=== PATIENT | female | born 1980 | race African-American/Black ===

== ENCOUNTER → 2023-12-21 | Emergency (ER) | payer OTHER ==
[~2023-12-21] MED LIST: CYCLOBENZAPRINE 10 MG TAB ONE; GABAPENTIN 300 MG CAP ONE; KETOROLAC 30 MG/ML INJ ONE; LIDOCAINE 4% PATCH ONE; POTASSIUM 25 MEQ EFFERV TAB ONE
[2023-12-21 16:19] LABS: Absolute Lymphocytes (CBC) 1.9 K/uL (0.7-4.9); Hematocrit 33.8 % (36.0-45.0); Lymphocytes % 30.1 % (15.3-44.8); MCV 69.9 fL (80-100); Platelets 275 thou/uL (152-406); RBC Red Blood Cell Count 4.84 M/uL (3.86-4.86)
[2023-12-21 16:44] LABS: Albumin 3.4 g/dL (3.4-5.0); Bilirubin Total 0.4 mg/dL (0.2-1.0); Potassium 3.2 mEq/L (3.5-5.1); Protein, Total 8.6 g/dL (6.4-8.2)
[2023-12-21 16:56] LABS: Specific Gravity 1.012 (1.005-1.030)
[2023-12-21 17:07] LABS: Specific Gravity 1.012 (1.005-1.030); Urine Bacteria None Seen /HPF (<20); Urine Bilirubin NEGATIVE (Negative); Urine Blood 3+ (OVER) (Negative); Urine Clarity Turbid (Clear); Urine Color Light-Yellow (Yellow); Urine Glucose NEGATIVE (Negative); Urine Mucus Slight /HPF (None Seen); Urine Protein NEGATIVE (Negative); Urine RBC >50 /HPF (None Seen); Urine Urobilinogen Normal (Normal); Urine pH 5.5 (5.0-7.0)
--- NOTE | 2023-12-21 17:42 | RAD REPORT ---
EXAM DESCRIPTION: CT - Abdomen Pelvis Wo Contrast - 12/21/2023 5:30 pm CLINICAL HISTORY: Abdominal pain. flank/mid back pain COMPARISON: No comparisons TECHNIQUE: CT imaging of the abdomen and pelvis was performed without contrast. Solid organ, bowel a nd vascular assessment is limited due to lack of IV and oral contrast. All CT scans are performed using dose optimization technique as appropriate and may include automated exposure control or mA/KV adjustment according to patient size. FINDINGS: Small benign calcified granulomata are seen both lung bases. The liver, spleen, pancreas, adrenal glands and kidneys are within normal limits for a limited non-co ntrast examination. No bowel obstruction, free air, free fluid or abscess. Moderate stool is present throughout the colon . The appendix is not identified as a discrete structure, however, no secondary findings of appendici tis are identified. Large lobulated pelvic mass is presumably a leiomyomatous uterus. The osseous structures are within normal limits. IMPRESSION: Very large leiomyomatous uterus suspected measuring 17 cm in transverse dimension. Moderate stool retained throughout the colon. A limited non-contrast examination was performed as detailed.
--- NOTE | 2023-12-21 18:16 | EDPHYS ---
Physician Documentation [facility] Name: Nilay Pepe Age: 43 yrs Sex: Female : 1980 Arrival Date: 12/21/2023 Time: 14:50 Bed 20 Private MD: ED Physician Anibal Robert HPI: 12/21 15:21 This 43 yrs old Black Female presents to ER via Ambulatory with complaints of Back Pain.sb4 15:21 The patient presents with pain that is acute, with no known mechanism of injury, and sb4 spasm, and tenderness. The symptoms are located in the lumbar area. Onset: The symptoms/episode began/occurred 7 day(s) ago. The pain does not radiate. Associated signs and symptoms: The patient has no apparent associated signs or symptoms. Modifying factors: The patient symptoms are alleviated by nothing, the patient symptoms are aggravated by movement. The patient has experienced a previous episode. 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 - Social history:: Smoking status: Patient denies any tobacco usage or history of. ROS: 15:21 Constitutional: Negative for fever, chills, and weight loss, sb4 15:21 Back: Positive for pain at rest, pain with movement, of the lumbar area, 15:21 All other systems are negative, Exam: 15:21 Constitutional: This is a well developed, well nourished patient who is awake, alert, sb4 and in no acute distress. Head/Face: Normocephalic, atraumatic. Eyes: Extra-ocular motions intact. Periorbital areas with no swelling, redness, or edema. ENT: Mucous membranes moist. Cardiovascular: Regular rate and rhythm with a normal S1 and S2. Respiratory: Lungs have equal breath sounds bilaterally, clear to auscultation and percussion. No rales, rhonchi or wheezes noted. No increased work of breathing, no retractions or nasal flaring. Abdomen/GI: Soft, non-tender, no distension. Skin: Warm, dry with normal turgor. Normal color with no rashes, no lesions, and no evidence of cellulitis. MS/ Extremity: Pulses equal, no cyanosis. Neurovascular intact. Full, normal range of motion. Neuro: Awake and alert, GCS 15, oriented to person, place, time, and situation. Motor strength 5/5 in all extremities. Sensory grossly intact. 15:21 Back: pain, that is moderate, of the lumbar area, normal spinal alignment noted, CVA tenderness, is absent, muscle spasm, is not present, 15:21 Neuro: Exam negative for acute changes, focal neuro deficits, motor deficits, sensory deficits, cerebellar deficits, weakness, Vital Signs: 15:15 BP 179 / 103; Pulse 81; Resp 17; Temp 98; Pulse Ox 97% on R/A; Weight 62.6 kg; Height 4 ll1 ft. 6 in. ; Pain 0/10; 16:30 BP 179 / 101; Pulse 73; Resp 16; Pulse Ox 100% on R/A; me1 17:00 BP 157 / 87; Pulse 71; Resp 16; Pulse Ox 100% on R/A; me1 18:33 BP 173 / 104; Pulse 83; Resp 18; Pulse Ox 100% on R/A; me1 15:15 Body Mass Index 32.07 (62.60 kg, 139.7 cm) ll1 15:15 Pain Scale: Adult ll1 MDM: 15:08 Patient medically screened. sb4 15:21 Differential diagnosis: Pyelonephritis Ureterolithiasis. sb4 18:08 Data reviewed: vital signs, nurses notes, lab test result(s), radiologic studies, and sb4 as a result, I will discharge patient. Counseling: I had a detailed discussion with the patient and/or guardian regarding the historical points, exam findings, and any diagnostic results supporting the discharge/admit diagnosis, the presence of at least one elevated blood pressure reading (>120/80) during this emergency department visit, lab results, radiology results, to return to the emergency department if symptoms worsen or persist or if there are any questions or concerns that arise at home. ED course: aware of uterine mass, has hysterectomy scheduled. 12/21 15:19 Order name: CBC with Diff sb4 12/21 15:19 Order name: CMP; Complete Time: 16:46 sb4 12/21 15:19 Order name: Urinalysis w/ reflexes; Complete Time: 17:07 sb4 12/21 15:23 Order name: Test, Urine; Complete Time: 17:08 sb4 12/21 15:19 Order name: CT Abd/Pelvis - Without Contrast; Complete Time: 17:50 sb4 12/21 15:19 Order name: IV Saline Lock; Complete Time: 16:29 sb4 12/21 15:19 Order name: Labs collected and sent; Complete Time: 16:29 sb4 Administered Medications: 16:32 Drug: Ketorolac IVP 15 mg IVP once Route: IVP; Site: right antecubital; me1 16:37 Follow up: Response: No adverse reaction; Pain is decreased me1 16:32 Drug: Cyclobenzaprine PO 10 mg PO once Route: PO; me1 16:37 Follow up: Response: No adverse reaction; Pain is decreased me1 17:14 Drug: Potassium PO Effervescent Tablet 50 mEq PO once; dissolve in 4 ounces of water or me1 juice Route: PO; 17:17 Follow up: Response: No adverse reaction me1 18:32 Drug: Gabapentin PO 300 mg PO once Route: PO; me1 18:43 Follow up: Response: No adverse reaction me1 18:32 Drug: Lidoderm Topical Patch 5 % (700 mg/patch) 1 patches Topical once; leave on for 12 me1 hours; cover most painful area; may cut into smaller pieces {Note: TO LUMBAR SPINE.} Route: Topical; Site: affected area; Disposition Summary: 12/21/23 18:15 Discharge Ordered Notes: Location: Home sb4 Problem: new sb4 Symptoms: have improved sb4 Condition: Stable sb4 Diagnosis - Low back pain sb4 Followup: sb4 - With: Emergency Department - When: As needed - Reason: Trouble breathing, Worsening of condition Discharge Instructions: - Discharge Summary Sheet sb4 - Acute Back Pain, Adult sb4 Forms: - Medication Reconciliation Form sb4 - Thank You Letter sb4 - Antibiotic Education sb4 - Prescription Opioid Use sb4 - Patient Portal Instructions sb4 - Leadership Thank You Letter sb4 Prescriptions: - Diclofenac Sodium 75 mg Oral Tablet Sustained Release - take 1 tablet ORAL route 2 times per day; 30 tablet; Refills: 0, Product sb4 Selection Permitted - Cyclobenzaprine 5 mg Oral Tablet - take 1 tablet ORAL route 3 times per day As needed; 15 tablet; Refills: 0, sb4 Product Selection Permitted Addendum: 12/22/2023 23:26 I was immediately available for consultation during this patient's visit. I did not e c2 personally see the patient or discuss the patient with the LEON. . Signatures: Dispatcher [employer] Brooke Ewing RN RN ll1 Latesha Mercedes PA-C PANoris sb4 Danii Leos RN RN me1 Anibal Robert MD MD ec2
--- NOTE | 2023-12-21 18:16 | ER ---
Nurse's Notes [facility] Name: Nilay Pepe Age: 43 yrs Sex: Female : 1980 Arrival Date: 12/21/2023 Time: 14:50 Bed 20 Private MD: Diagnosis: Low back pain Presentation: 12/21 15:15 Chief complaint: Patient states: Muscle spasms, burning, tingling to back for 4-5 days. ll1 No trauma or falls. Coronavirus screen: Client denies travel out of the [place] in the last 14 days. At this time, the client does not indicate any symptoms associated with coronavirus-19. Ebola Screen: Patient denies travel to an Ebola-affected area in the 21 days before illness onset. Initial Sepsis Screen: Does the patient meet any 2 criteria? No. Patient's initial sepsis screen is negative. Does the patient have a suspected source of infection? No. Patient's initial sepsis screen is negative. Risk Assessment: Do you want to hurt yourself or someone else? Patient reports no desire to harm self or others. Onset of symptoms was December 17, 2023. 15:15 Method Of Arrival: Ambulatory ll1 15:15 Acuity: SHERRIE 4 ll1 16:12 Acuity: SHERRIE 3 iw Triage Assessment: 15:16 General: Appears uncomfortable, Behavior is calm, cooperative, appropriate for age. ll1 Pain: Complains of pain in mid back Quality of pain is described as aching, crampy, sharp, Pain began 4-5 days. Musculoskeletal: Circulation, motion, and sensation intact. Capillary refill < 3 seconds, Reports pain in mid back. 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 - Social history:: Smoking status: Patient denies any tobacco usage or history of. Screenin:37 [facility] ED Fall Risk Assessment (Adult) History of falling in the last 3 months, me1 including since admission No falls in past 3 months (0 pts) Confusion or Disorientation No (0 pts) Intoxicated or Sedated No (0 pts) Impaired Gait No (0 pts) Mobility Assist Device Used No (0 pt) Altered Elimination No (0 pt) Score/Fall Risk Level 0 - 2 = Low Risk Maintained a safe environment, Provided non-skid footwear, Hourly rounding (assess needs \T\ fall precautionary measures) done. Abuse screen: Denies threats or abuse. Nutritional screening: No deficits noted. Tuberculosis screening: No symptoms or risk factors identified. Assessment: 16:37 General: Appears uncomfortable, well groomed, well developed, well nourished, Behavior me1 is calm, cooperative, appropriate for age, Reports Muscle spasms, burning, tingling to back for 4-5 days. No trauma or falls. Pain: Complains of pain in lumbar area Pain does not radiate. Pain currently is 10 out of 10 on a pain scale. Quality of pain is described as burning, tingling, Pain began 4-5 days ago Is continuous. Neuro: Level of Consciousness is awake, alert, obeys commands, Oriented to person, place, time, situation, Appropriate for age. Cardiovascular: Capillary refill < 3 seconds Patient's skin is warm and dry. Respiratory: Airway is patent Trachea midline Respiratory effort is even, unlabored, Respiratory pattern is regular, symmetrical. Musculoskeletal: Reports pain in lumbar area. Vital Signs: 15:15 BP 179 / 103; Pulse 81; Resp 17; Temp 98; Pulse Ox 97% on R/A; Weight 62.6 kg; Height 4 ll1 ft. 6 in. ; Pain 0/10; 16:30 BP 179 / 101; Pulse 73; Resp 16; Pulse Ox 100% on R/A; me1 17:00 BP 157 / 87; Pulse 71; Resp 16; Pulse Ox 100% on R/A; me1 18:33 BP 173 / 104; Pulse 83; Resp 18; Pulse Ox 100% on R/A; me1 15:15 Body Mass Index 32.07 (62.60 kg, 139.7 cm) ll1 15:15 Pain Scale: Adult ll1 ED Course: 14:55 Patient arrived in ED. rg4 14:59 [facility]atesha Mercedes [facility] sb4 14:59 Anibal Robert MD is Attending Physician. sb4 15:16 Triage completed. ll1 15:16 Arm band placed on. ll1 16:14 Initial lab(s) drawn, by me, sent to lab. Inserted saline lock: 22 gauge in right [id number] antecubital area, using aseptic technique. Blood collected. 16:24 Danii Leos, RN is Primary Nurse. me1 16:37 Patient has correct armband on for positive identification. Bed in low position. Call me1 light in reach. Side rails up X2. Provided Education on: POC. Verbalized understanding. . 16:37 Urinalysis w/ reflexes Sent. me1 16:37 Test, Urine Sent. me1 16:37 No provider procedures requiring assistance completed. me1 17:32 CT Abd/Pelvis - Without Contrast In Process Unspecified. EDMS 18:42 IV discontinued, intact, bleeding controlled, No redness/swelling at site. Pressure me1 dressing applied. Administered Medications: 16:32 Drug: Ketorolac IVP 15 mg IVP once Route: IVP; Site: right antecubital; me1 16:37 Follow up: Response: No adverse reaction; Pain is decreased me1 16:32 Drug: Cyclobenzaprine PO 10 mg PO once Route: PO; me1 16:37 Follow up: Response: No adverse reaction; Pain is decreased me1 17:14 Drug: Potassium PO Effervescent Tablet 50 mEq PO once; dissolve in 4 ounces of water or me1 juice Route: PO; 17:17 Follow up: Response: No adverse reaction me1 18:32 Drug: Gabapentin PO 300 mg PO once Route: PO; me1 18:43 Follow up: Response: No adverse reaction me1 18:32 Drug: Lidoderm Topical Patch 5 % (700 mg/patch) 1 patches Topical once; leave on for 12 me1 hours; cover most painful area; may cut into smaller pieces {Note: TO LUMBAR SPINE.} Route: Topical; Site: affected area; Medication: 16:37 VIS not applicable for this client. me1 Outcome: 18:15 Discharge ordered by . sb4 18:42 Discharged to home ambulatory, me1 18:42 Condition: stable 18:42 Discharge instructions given to patient, Instructed on discharge instructions, follow up and referral plans. medication usage, Demonstrated understanding of instructions, follow-up care, medications, Prescriptions given X 2, 18:43 Patient left the ED. me1 Signatures: Dispatcher [employer] Violet Tobar, RN RN Irma Morton rg4 Brooke Wu RN RN ll1 Latesha Mercedes PA-C PANoris sb4 Danii Leos RN RN me1 Zeb Barragan [id number] Corrections: (The following items were deleted from the chart) 16:37 15:15 Chief complaint: Patient states: Muscle spasms, burning, tingling to back for 4-5 me1 days. No trauma or falls. 1
[2023-12-21 19:54] VITALS: BP 173/104; TEMP 98; O2SAT 100
[2023-12-21 20:37] LABS: Blood Morphology Comment NOTED (NOT SEEN); Platelet Estimate ADEQ; White Blood Cell Scan OK (OK)
== END ==
LOC: ER 14:50
DX: M54.50 Low back pain, unspecified (principal)
CPT/HCPCS: 85025; 81001; 36415; 81025; 80053; 74176; 96374; 99284; J2001

== ENCOUNTER 2024-03-19 14:25 | Emergency (ER) | payer OTHER ==
[2024-03-19] MEDS ORDERED: NA CHLORIDE 0.9% 1,000 ML ONE (14:44)
[2024-03-19 16:00] LABS: Absolute Eosinophils 0.2 K/uL (0-0.5); Absolute Monocytes 0.3 K/uL (0.1-1.3); Absolute Neutrophil 4.5 K/uL (1.8-8.0); Basophils % 0.1 % (0-1.3); Eosinophils % 3.1 % (0-4.4); Hematocrit 35.7 % (36.0-45.0); Hemoglobin 10.7 g/dL (12.0-15.0); Lymphocytes % 17.2 % (15.3-44.8); MCH 20.7 pg (27.0-35.0); MCHC 29.8 g/dL (32.0-36.0); MCV 69.4 fL (80-100); MPV 9.9 fL (7.6-11.3); Monocytes % 5.1 % (3.3-12.3); Neutrophils % 74.5 % (41.7-73.7); Platelets 305 thou/uL (152-406); RBC Red Blood Cell Count 5.14 M/uL (3.86-4.86); Red Cell Distribution Width 18.6 % (12.1-15.2)
[2024-03-19 16:03] LABS: Blood Morphology Comment NOTED (NOT SEEN); Hypochromasia 1+; Microcytosis 1+; Platelet Estimate ADEQ; White Blood Cell Scan OK (OK)
[2024-03-19 16:15] LABS: Albumin 3.6 g/dL (3.4-5.0); Albumin/Globulin Ratio 0.8 (1.1-1.8); Anion Gap 9.4 mEq/L (5.0-15.0); Bilirubin Total 0.3 mg/dL (0.2-1.0); Globulin 4.8 g/dL (2.3-3.5); Potassium 3.4 mEq/L (3.5-5.1); Protein, Total 8.4 g/dL (6.4-8.2)
[2024-03-19] MEDS ORDERED: ACETAMINOPHEN 500 MG TAB ONE (16:28)
[2024-03-19 16:35] LABS: INFLUENZA A NAA NEGATIVE (NEGATIVE); SARS-COV-2 RT PCR NEGATIVE (NEGATIVE)
--- NOTE | 2024-03-19 16:57 | RAD REPORT ---
EXAM DESCRIPTION: RAD - Chest Single View - 03/19/2024 4:50 pm CLINICAL HISTORY: Pain Chest pain. COMPARISON: <Comparisons> FINDINGS: Portable technique limits examination quality. Small calcified granulomas are present in both lung bases. The lungs are otherwise clear. The heart i s normal in size. No displaced fractures. IMPRESSION: No acute intrathoracic process suspected.
--- NOTE | 2024-03-19 17:02 | EDPHYS ---
Physician Documentation [facility] Name: Nilay Pepe Age: 43 yrs Sex: Female : 1980 Arrival Date: 03/19/2024 Time: 14:25 Bed 11 Private MD: ED Physician Gregorio Stubbs HPI: 03/19 14:57 This 43 yrs old Black Female presents to ER via Ambulatory with complaints of Flu kb Symptoms. 14:57 Pt is a 43 year old female who presents for cough, congestion, headache and bodyaches kb that started 4 days ago. Denies fever, shortness of breath, chest pain. Historical: - Allergies: 14:35 No Known Allergies; iw - PMHx: 14:35 Bipolar disorder; schizo; diabetes mellitus; iw - Immunization history:: Adult Immunizations unknown, Client reports receiving the 2nd dose of the Covid vaccine. - Infectious Disease History:: Denies. - Social history:: Smoking status: Patient denies any tobacco usage or history of. ROS: 14:56 Constitutional: As per HPI kb Exam: 14:56 Constitutional: This is a well developed, well nourished patient who is awake, alert, kb and in no acute distress. Head/Face: Normocephalic, atraumatic. ENT: Moist Mucous membranes Cardiovascular: Tachycardic rate Respiratory: Respirations even and unlabored. No increased work of breathing. Talking in full sentences Abdomen/GI: Soft, non-tender. No distention Skin: Warm, dry with normal turgor. Normal color. MS/ Extremity: Pulses equal, no cyanosis. Neurovascular intact. Full, normal range of motion. Neuro: Awake and alert, GCS 15, oriented to person, place, time, and situation. Moves all extremities. Normal gait. Vital Signs: 14:34 BP 127 / 97; Pulse 124; Resp 19; Temp 98.3; Pulse Ox 99% on R/A; Weight 66.68 kg; iw Height 4 ft. 6 in. ; 16:32 Pulse 109; Resp 18; Pulse Ox 98% on R/A; ko1 17:02 BP 118 / 82; Pulse 99; Resp 19; Pulse Ox 98% ; ko1 14:34 Body Mass Index 34.17 (66.68 kg, 139.7 cm) iw MDM: 14:35 Patient medically screened. kb 14:57 Differential diagnosis: flu, covid, uri. Data reviewed: vital signs, nurses notes. kb 17:01 I considered the following discharge prescriptions or medication management in the emergency department I discussed and recommended Over The Counter medications, Antibiotics: At this time antibiotics are not recommended. Counseling: I had a detailed discussion with the patient and/or guardian regarding the historical points, exam findings, and any diagnostic results supporting the discharge/admit diagnosis, lab results, radiology results, the need for outpatient follow up, a family practitioner, to return to the emergency department if symptoms worsen or persist or if there are any questions or concerns that arise at home. 03/19 15:53 Order name: Comprehensive Metabolic Panel EDGA 03/19 15:54 Order name: CBC with Automated Diff EDGA 03/19 15:54 Order name: Influenza Screen (A EDGA 03/19 15:54 Order name: COVID-19/FLU A+B EDGA 03/19 16:03 Order name: CBC with Automated Diff; Complete Time: 16:16 EDGA 03/19 16:03 Order name: CBC Smear Scan; Complete Time: 16:16 EDMS 03/19 16:04 Order name: CBC Smear Scan EDMS 03/19 16:15 Order name: Comprehensive Metabolic Panel; Complete Time: 16:16 EDMS 03/19 16:35 Order name: COVID-19/FLU A+B; Complete Time: 16:41 EDMS 03/19 16:47 Order name: Influenza Screen (A ; Complete Time: 16:47 EDMS 03/19 15:45 Order name: Chest Single View EDGA 03/19 16:57 Order name: RAD; Complete Time: 16:58 EDGA 03/19 14:38 Order name: IV Start; Complete Time: 14:57 Administered Medications: 14:57 Drug: NS 0.9% IV 1000 ml IV at 1000 ml once Route: IV; Rate: 1000 ml; Site: right ko1 antecubital; 16:23 Follow up: Response: No adverse reaction; IV Status: Completed infusion; IV Intake: ko1 1000ml 16:31 Drug: Acetaminophen PO 1000 mg PO once Route: PO; ko1 17:00 Follow up: Response: No adverse reaction ko1 Disposition: 03/20 09:00 Co-signature as Attending Physician, Gregorio Stubbs MD I reviewed the patient's care rn provided by the Advanced Practice Provider and agree with the diagnosis and treatment plan. Disposition Summary: 03/19/24 17:02 Discharge Ordered Notes: Location: Home kb Condition: Stable kb Diagnosis - Acute upper respiratory infection, unspecified kb Followup: kb - With: Emergency Department - When: As needed - Reason: Worsening of condition Followup: kb - With: Private Physician - When: 2 - 3 days - Reason: Recheck today's complaints, Continuance of care, Re-evaluation by your physician Discharge Instructions: - Discharge Summary Sheet kb - Upper Respiratory Infection, Adult, [id number] kb - Viral Respiratory Infection, [id number] kb Forms: - Medication Reconciliation Form kb - Antibiotic Education kb - Prescription Opioid Use kb - Patient Portal Instructions kb - Leadership Thank You Letter kb Signatures: Dispatcher [employer] Leilani Garcia, DIRECTOR COMMUNICATIONS-C DIRECTOR COMMUNICATIONS-Violet Sweet, RN Gregorio Bernard MD MD rn Oliver, Kathy, RN RN ko1
--- NOTE | 2024-03-19 17:02 | ER ---
Nurse's Notes [facility] Name: Nilay Pepe Age: 43 yrs Sex: Female : 1980 Arrival Date: 03/19/2024 Time: 14:25 Bed 11 Private MD: Diagnosis: Acute upper respiratory infection, unspecified Presentation: 03/19 14:34 Chief complaint: Patient states: headache, body aches, cough , congestion X 4 days. iw Coronavirus screen: Client presents with at least one sign or symptom that may indicate coronavirus-19. Ebola Screen: Patient negative for fever greater than or equal to 101.5 degrees Fahrenheit, and additional compatible Ebola Virus Disease symptoms Patient denies exposure to infectious person. Patient denies travel to an Ebola-affected area in the 21 days before illness onset. No symptoms or risks identified at this time. Initial Sepsis Screen: Does the patient meet any 2 criteria? HR > 90 bpm. Does the patient have a suspected source of infection? No. Patient's initial sepsis screen is negative. Risk Assessment: Do you want to hurt yourself or someone else? Patient reports no desire to harm self or others. Onset of symptoms was March 15, 2024. 14:34 Method Of Arrival: Ambulatory iw 14:34 Acuity: SHERRIE 3 iw Historical: - Allergies: 14:35 No Known Allergies; iw - PMHx: 14:35 Bipolar disorder; schizo; diabetes mellitus; iw - Immunization history:: Adult Immunizations unknown, Client reports receiving the 2nd dose of the Covid vaccine. - Infectious Disease History:: Denies. - Social history:: Smoking status: Patient denies any tobacco usage or history of. Screenin:07 [facility] ED Fall Risk Assessment (Adult) History of falling in the last 3 months, ko1 including since admission No falls in past 3 months (0 pts) Confusion or Disorientation No (0 pts) Intoxicated or Sedated No (0 pts) Impaired Gait No (0 pts) Mobility Assist Device Used No (0 pt) Altered Elimination No (0 pt) Score/Fall Risk Level 0 - 2 = Low Risk Oriented to surroundings, Maintained a safe environment, Educated pt \T\ family on fall prevention, incl call for assistance when getting out of bed, Assessed \T\ reinforced patient's understanding of fall precautions, Provided non-skid footwear, Hourly rounding (assess needs \T\ fall precautionary measures) done, Used ambulatory aids as needed (educated on \T\ assisted with), Used gait belt as appropriate. Abuse screen: Denies threats or abuse. Denies injuries from another. Nutritional screening: No deficits noted. Tuberculosis screening: No symptoms or risk factors identified. Assessment: 15:07 General: Appears ill, Behavior is calm, cooperative, appropriate for age. Pain: Denies ko1 pain. Neuro: No deficits noted. Cardiovascular: No deficits noted. Respiratory: Reports cough that is non-productive, persistent. GI: No deficits noted. : No deficits noted. EENT: Reports nasal congestion. Derm: No deficits noted. Musculoskeletal: Reports generalized body aches. Vital Signs: 14:34 BP 127 / 97; Pulse 124; Resp 19; Temp 98.3; Pulse Ox 99% on R/A; Weight 66.68 kg; iw Height 4 ft. 6 in. ; 16:32 Pulse 109; Resp 18; Pulse Ox 98% on R/A; ko1 17:02 BP 118 / 82; Pulse 99; Resp 19; Pulse Ox 98% ; ko1 14:34 Body Mass Index 34.17 (66.68 kg, 139.7 cm) iw ED Course: 14:33 Patient arrived in ED. iw 14:35 Leilani Sheriff FNP-C is [facility]. kb 14:35 Gregorio Stubbs MD is Attending Physician. kb 14:35 Triage completed. iw 14:36 Arm band placed on. iw 14:39 Cara Power, RN is Primary Nurse. ko1 14:55 Patient has correct armband on for positive identification. Bed in low position. Call ko1 light in reach. Side rails up X 1. Provided Education on: labs, call light. Pulse ox on. NIBP on. Door closed. Noise minimized. Lights dimmed. Pillow given. 14:55 No provider procedures requiring assistance completed. Initial lab(s) drawn, by me, ko1 sent to lab. COVID swab sent to lab. Flu and/or RSV swab sent to lab. Inserted saline lock: 20 gauge in right antecubital area, using aseptic technique. Blood collected. 14:57 CMP Sent. ko1 14:57 CBC with Diff Sent. ko1 14:57 SARS-COV-2 Antigen Rapid Sent. ko1 14:57 Flu Sent. ko1 16:52 Chest Single View In Process Unspecified. EDMS 17:02 IV discontinued, intact, bleeding controlled, No redness/swelling at site. Pressure ko1 dressing applied. Administered Medications: 14:57 Drug: NS 0.9% IV 1000 ml IV at 1000 ml once Route: IV; Rate: 1000 ml; Site: right ko1 antecubital; 16:23 Follow up: Response: No adverse reaction; IV Status: Completed infusion; IV Intake: ko1 1000ml 16:31 Drug: Acetaminophen PO 1000 mg PO once Route: PO; ko1 17:00 Follow up: Response: No adverse reaction ko1 Medication: 15:07 VIS not applicable for this client. ko1 Intake: 16:23 IV: 1000ml; Total: 1000ml. ko1 Outcome: 17:02 Discharge ordered by . dre 17:02 Discharged to home ambulatory, ko1 17:02 Condition: stable 17:02 Discharge instructions given to patient, Instructed on discharge instructions, follow up and referral plans. Demonstrated understanding of instructions, follow-up care, 17:18 Patient left the ED. ko1 Signatures: Dispatcher [employer] EDMS Leilani Sheriff, INDEPENDENT MARKETING CONSULTANT-C INDEPENDENT MARKETING CONSULTANT-Violet Sweet, RN RN iw Cara Power, RN RN ko1 Corrections: (The following items were deleted from the chart) 14:35 14:34 BP 127 / 97; Pulse 124bpm; Resp 19bpm; Pulse Ox 99% RA; Temp 98.3F; iw iw
[2024-03-19 19:12] VITALS: BP 118/82; TEMP 98.3; O2SAT 98
== END 2024-03-19 17:18 | disposition home or self-care (01) ==
LOC: ER 14:25
DX: J06.9 Acute upper respiratory infection, unspecified (principal); Z11.52 Encounter for screening for COVID-19; F20.9 Schizophrenia, unspecified
CPT/HCPCS: 85025; 36415; 80053; 0240U; 87804 ×2; 71045; 96360; 99284; J7030

== ENCOUNTER 2024-10-17 08:15 | Emergency (ER) | payer OTHER ==
[2024-10-17] MEDS ORDERED: IBUPROFEN 200 MG TAB PO ONE (08:36)
[2024-10-17] MEDS ORDERED: AZITHROMYCIN 250 MG TAB ONE (08:36)
[2024-10-17 09:16] LABS: SARS-CoV-2 Antigen CONTROL BLUE LINE VIS/BG OK; SARS-CoV-2 Antigen Rapid Res Negative (Negative)
--- NOTE | 2024-10-17 09:35 | RAD REPORT ---
EXAMINATION: TWO VIEW CHEST XR CLINICAL INDICATION: Female, 43 years old. [facility] MAIN COUGH Bed: TECHNIQUE: 2 view radiographs of the chest were performed. COMPARISON: 03/19/2024 FINDINGS: The lungs are well inflated and clear. Small basal calcified granulomas again seen. No pneumothorax o r sizable effusion. The heart is normal in size. Mediastinal contours are unremarkable. IMPRESSION: No acute or significant abnormalities.
--- NOTE | 2024-10-17 09:44 | ER ---
Nurse's Notes [facility] Name: Nilay Pepe Age: 43 yrs Sex: Female : 1980 Arrival Date: 10/17/2024 Time: 08:15 Bed 11 Private MD: Diagnosis: Acute upper respiratory infection, unspecified;Cough;Acute pharyngitis, unspecified Presentation: 10/17 08:30 Chief complaint: Patient states: she has had a sore throat and cough/congestion that is ap3 worse at night. patient reports she recently got a "covid shot". Coronavirus screen: Client presents with at least one sign or symptom that may indicate coronavirus-19. Ebola Screen: No symptoms or risks identified at this time. Initial Sepsis Screen: Does the patient meet any 2 criteria? HR > 90 bpm. Does the patient have a suspected source of infection? No. Patient's initial sepsis screen is negative. Risk Assessment: Do you want to hurt yourself or someone else? Patient reports no desire to harm self or others. Onset of symptoms is unknown. 08:30 Method Of Arrival: Ambulatory ap3 08:30 Acuity: SHERRIE 4 ap3 Triage Assessment: 08:32 General: Appears in no apparent distress. Behavior is calm, cooperative, appropriate ap3 for age, Reports feeling ill for fatigue for. Pain: Complains of pain in throat. EENT: Reports pain when swallowing. Neuro: Level of Consciousness is awake, alert, obeys commands, Oriented to person, place, time, situation, Appropriate for age. Cardiovascular: Patient's skin is warm and dry. Respiratory: Reports cough that is Airway is patent Respiratory effort is even, unlabored, Respiratory pattern is regular, symmetrical. 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 - Infectious Disease History:: Denies. - Social history:: Smoking status: Patient denies any tobacco usage or history of. Screenin:32 [facility] ED Fall Risk Assessment (Adult) History of falling in the last 3 months, ap3 including since admission No falls in past 3 months (0 pts) Confusion or Disorientation No (0 pts) Intoxicated or Sedated No (0 pts) Impaired Gait No (0 pts) Mobility Assist Device Used No (0 pt) Altered Elimination No (0 pt) Score/Fall Risk Level 0 - 2 = Low Risk Oriented to surroundings, Maintained a safe environment, Educated pt \\T\\ family on fall prevention, incl call for assistance when getting out of bed, Assessed \\T\\ reinforced patient's understanding of fall precautions, Hourly rounding (assess needs \\T\\ fall precautionary measures) done, Used ambulatory aids as needed (educated on \\T\\ assisted with), Used gait belt as appropriate. Abuse screen: Denies threats or abuse. Nutritional screening: No deficits noted. Tuberculosis screening: No symptoms or risk factors identified. Assessment: 10:10 Respiratory: Airway is patent Respiratory effort is even, unlabored, Respiratory ap3 pattern is regular, symmetrical, Breath sounds are clear. 10:11 EENT: Throat with gag reflex present. ap3 Vital Signs: 08:30 BP 123 / 102; Pulse 96; Resp 17; Temp 98.8(O); Pulse Ox 98% on R/A; Weight 61.69 kg; ap3 Height 4 ft. 6 in. ; Pain 9/10; 08:30 Body Mass Index 31.61 (61.69 kg, 139.7 cm) ap3 08:30 Pain Scale: Adult ap3 ED Course: 08:20 Patient arrived in ED. sj2 08:26 Solomon Smith MD is Attending Physician. ildefonso 08:31 Triage completed. ap3 08:33 Arm band placed on right wrist. ap3 08:38 COVID swab sent to lab. Flu and/or RSV swab sent to lab. Strep swab sent to lab. ap3 08:38 SARS RAPID Sent. ap3 08:38 Strep Sent. ap3 08:38 Flu Sent. ap3 08:51 Chest Pa And Lat (2 Views) XRAY In Process Unspecified. EDMS 10:10 Patient has correct armband on for positive identification. Provided Education on: ap3 discharge instructions. 10:10 No provider procedures requiring assistance completed. Patient did not have IV access ap3 during this emergency room visit. Administered Medications: 08:42 Drug: Ibuprofen PO 600 mg PO once Route: PO; ap3 10:11 Follow up: Response: No adverse reaction ap3 08:42 Drug: AZITHromycin PO 500 mg PO once Route: PO; ap3 10:11 Follow up: Response: No adverse reaction ap3 Medication: 10:11 VIS not applicable for this client. ap3 Outcome: 09:43 Discharge ordered by . ildefonso 10:10 Discharged to home ambulatory, ap3 10:10 Condition: good 10:10 Discharge instructions given to patient, Instructed on discharge instructions, follow up and referral plans. medication usage, Demonstrated understanding of instructions, follow-up care, medications, Prescriptions given X 3, 10:11 Patient left the ED. ap3 Signatures: Dispatcher [employer] EDMT Solomon Smith MD MD cha Prokisch, Amanda, RN RN ap3 Roxane Funes
--- NOTE | 2024-10-17 09:44 | EDPHYS ---
Physician Documentation [facility] Name: Nilay Pepe Age: 43 yrs Sex: Female : 1980 Arrival Date: 10/17/2024 Time: 08:15 Bed 11 Private MD: MIN Physician Solomon Smith HPI: 10/17 09:34 This 43 yrs old Black Female presents to ER via Ambulatory with complaints of Sore ildefonso Throat, Painful Cough. 09:34 The patient presents with sore throat. The patient describes throat pain as constant. ildefonso Onset: The symptoms/episode began/occurred 5 day(s) ago. Severity of symptoms: At their worst the symptoms were mild, in the emergency department the symptoms are unchanged. Modifying factors: The symptoms are alleviated by nothing, the symptoms are aggravated by swallowing. Associated signs and symptoms: Pertinent positives: cough. The patient has experienced similar episodes in the past, multiple times. 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 - Infectious Disease History:: Denies. - Social history:: Smoking status: Patient denies any tobacco usage or history of. ROS: 09:37 Constitutional: Negative for fever, chills, and weight loss, Eyes: Negative for injury, ildefonso pain, redness, and discharge, Neck: Negative for injury, pain, and swelling, Cardiovascular: Negative for chest pain, palpitations, and edema, Abdomen/GI: Negative for abdominal pain, nausea, vomiting, diarrhea, and constipation, Back: Negative for injury and pain, : Negative for injury, bleeding, discharge, and swelling, MS/Extremity: Negative for injury and deformity, Skin: Negative for injury, rash, and discoloration, Neuro: Negative for headache, weakness, numbness, tingling, and seizure, Psych: Negative for depression, anxiety, suicide ideation, homicidal ideation, and hallucinations, Allergy/Immunology: Negative for hives, rash, and allergies, Endocrine: Negative for neck swelling, polydipsia, polyuria, polyphagia, and marked weight changes, Hematologic/Lymphatic: Negative for swollen nodes, abnormal bleeding, and unusual bruising, 09:37 ENT: Positive for sinus congestion, sore throat, 09:37 Respiratory: Positive for cough, "sounds productive", Exam: 09:37 Constitutional: This is a well developed, well nourished patient who is awake, alert, ildefonso and in no acute distress. Head/Face: Normocephalic, atraumatic. Eyes: Pupils equal round and reactive to light, extra-ocular motions intact. Lids and lashes normal. Conjunctiva and sclera are non-icteric and not injected. Cornea within normal limits. Periorbital areas with no swelling, redness, or edema. ENT: Nares patent. No nasal discharge, no septal abnormalities noted. Tympanic membranes are normal and external auditory canals are clear. Oropharynx with no redness, swelling, or masses, exudates, or evidence of obstruction, uvula midline. Mucous membranes moist. Neck: Trachea midline, no thyromegaly or masses palpated, and no cervical lymphadenopathy. Supple, full range of motion without nuchal rigidity, or vertebral point tenderness. No Meningismus. Chest/axilla: Normal chest wall appearance and motion. Nontender with no deformity. No lesions are appreciated. Cardiovascular: Regular rate and rhythm with a normal S1 and S2. No gallops, murmurs, or rubs. Normal PMI, no JVD. No pulse deficits. Abdomen/GI: Soft, non-tender, with normal bowel sounds. No distension or tympany. No guarding or rebound. No evidence of tenderness throughout. Back: No spinal tenderness. No costovertebral tenderness. Full range of motion. Skin: Warm, dry with normal turgor. Normal color with no rashes, no lesions, and no evidence of cellulitis. MS/ Extremity: Pulses equal, no cyanosis. Neurovascular intact. Full, normal range of motion., bilateral aka Neuro: Awake and alert, GCS 15, oriented to person, place, time, and situation. Cranial nerves II-XII grossly intact. Motor strength 5/5 in all extremities. Sensory grossly intact. Cerebellar exam normal. Normal gait. Psych: Awake, alert, with orientation to person, place and time. Behavior, mood, and affect are within normal limits. 09:37 Respiratory: the patient does not display signs of respiratory distress, Respirations: normal, Breath sounds: are clear throughout, 09:37 Musculoskeletal/extremity: DVT Exam: No signs of deep vein thrombosis. no pain, no swelling, no tenderness, negative Homans' sign noted on exam, no appreciated bluish discoloration, no erythema, no increased warmth, Vital Signs: 08:30 BP 123 / 102; Pulse 96; Resp 17; Temp 98.8(O); Pulse Ox 98% on R/A; Weight 61.69 kg; ap3 Height 4 ft. 6 in. ; Pain 9/10; 08:30 Body Mass Index 31.61 (61.69 kg, 139.7 cm) ap3 08:30 Pain Scale: Adult ap3 MDM: 08:26 Medical Screening Exam initiated ildefonso 08:45 Medical Screening Exam initiated ildefonso 09:40 Differential diagnosis: obstructed airway, bronchitis, flu, URI, echovirus infection, ildefonso influenza, laryngitis, pharyngitis, tonsillitis, upper respiratory infection, uvulitis. Antibiotic administration: The patient is discharged and will get outpatient antibiotics, Zithromax. Data reviewed: vital signs, nurses notes, lab test result(s), radiologic studies, CT scan. Consideration of Admission/Observation Escalation of care including admission/observation considered. I considered the following discharge prescriptions or medication management in the emergency department Medications were administered in the Emergency Department. See MAR. Independent interpretation of the following test(s) in the Emergency Department X-Ray: My interpretation is cxr neg. Test considered but Not performed: Labs: no cbc , no compmet. Historians other than the Patient: pt well informed. Care significantly affected by the following chronic conditions: Diabetes, bipolar. 10/17 08:28 Order name: Flu [facility] 10/17 08:28 Order name: Strep [facility] 10/17 08:28 Order name: SARS RAPID [facility] 10/17 09:20 Order name: Throat Culture EDMS 10/17 08:28 Order name: Chest Pa And Lat (2 Views) XRAY ildefonso Administered Medications: 08:42 Drug: Ibuprofen PO 600 mg PO once Route: PO; ap3 10:11 Follow up: Response: No adverse reaction ap3 08:42 Drug: AZITHromycin PO 500 mg PO once Route: PO; ap3 10:11 Follow up: Response: No adverse reaction ap3 Disposition Summary: 10/17/24 09:43 Discharge Ordered Notes: Location: Home ildefonso Problem: new ildefonso Symptoms: have improved ildefonso Condition: Stable ildefonso Diagnosis - Acute upper respiratory infection, unspecified ildefonso - Cough ildefonso - Acute pharyngitis, unspecified ildefonso Followup: [facility] - With: Private Physician - When: 2 - 3 days - Reason: Recheck today's complaints, Continuance of care, Re-evaluation by your physician Discharge Instructions: - Discharge Summary Sheet ildefonso - Pharyngitis ildefonso - Sore Throat ildefonso - Cool Mist Vaporizer ildefonso - Upper Respiratory Infection, Adult, [id number] ildefonso - Pharyngitis, [id number] ildefonso - Cough, Adult, [id number] ildefonso - Cough, Adult [facility] Forms: - Medication Reconciliation Form [facility] - Antibiotic Education [facility] - Prescription Opioid Use [facility] - Patient Portal Instructions [facility] - Leadership Thank You Letter [facility] Prescriptions: - Day-D 12 Hour 60-120 mg Oral Tablet Sustained Release 12 hr - take 1 tablet ORAL route every 12 hours As needed; 20 tablet; Refills: 0, [facility] Product Selection Permitted - Tessalon Perles 100 mg Oral capsule - take 2 capsule ORAL route every 8 hours As needed; 30 capsule; Refills: 0, [facility] Product Selection Permitted - Zithromax Z-Kamari 250 mg Oral tablet - take 1 tablet ORAL route as directed for 5 days Day 1 - take two (2) tablets ildefonso one time. Day 2, 3, 4 , 5 take one (1) tablet once daily.; 6 tablet; Refills: 0, Product Selection Permitted Signatures: Dispatcher [employer] Solomon Mercado MD MD cha Prokisch, Amanda RN RN ap3
[2024-10-17 10:20] VITALS: BP 123/102; TEMP 98.8; O2SAT 98
== END 2024-10-17 10:11 | disposition home or self-care (01) ==
LOC: ER 08:15
DX: J06.9 Acute upper respiratory infection, unspecified (principal); J02.9 Acute pharyngitis, unspecified; R05.9 Cough, unspecified; E11.9 Type 2 diabetes mellitus without complications; F31.9 Bipolar disorder, unspecified; Z11.52 Encounter for screening for COVID-19
CPT/HCPCS: 36415; 71046; 87070; 87081; 87804; 87811; 99283